=== PATIENT | female | born 1985 | race Caucasian/White ===

== ENCOUNTER 2016-04-06 18:13 | Emergency (ER) | payer SELFPAY ==
--- NOTE | 2016-04-06 18:38 | ERNOTE ---
Medical Problem HPI - Narrative Date of Service: 04/06/16 - General Chief Complaint: General Assessment Time Seen by Provider: 04/06/16 18:26 Source: patient Exam Limitations: no limitations - Immun/Allergies/Home Medications Immunizations: IMMUNIZATION HX Immunizations Up to Date Yes History of Influenza Vaccine No Hx Pneumococcal Vaccination No Allergies/Adverse Reactions: Allergies Sulfa (Sulfonamide Antibiotics) Allergy (Verified 04/06/16 18:25) Home Medications: HOME MEDICATIONS Cephalexin Monohydrate [Keflex] 500 mg PO QID #40 cap 04/06/16 [Last Taken Unknown] - History of Present History Narrative: Pt. comes in with c/o LLE numbness and loss of feeling in her bladder as well as B hand weakness. Pt. states that she thought she was dehydrated so she tried to drink water but was unable to hold the cup. Pt. states that these symptoms began yesterday and have become more intermittent today. Pt. states taht she has had problem word-finding this afternoon. Review of Systems - Review of Systems Constitutional: Present: no symptoms reported. Absent: recent illness, fever, chills, fatigue, malaise EYE: Present: no symptoms reported ENT: Present: no symptoms reported. Absent: ear pain, nose pain, nose congestion, nasal drainage, sore throat Respiratory: Present: no symptoms reported. Absent: shortness of breath, cough , wheezing Cardiology: Present: no symptoms reported. Absent: chest pain, palpitations, edema Gastrointestinal/Abdominal: Present: no symptoms reported. Absent: nausea, vomiting, diarrhea Genitourinary: Present: no symptoms reported Musculoskeletal: Present: no symptoms reported. Absent: back pain, joint pain Skin: Present: no symptoms reported. Absent: change in color, change in hair/ nails Neurological: Present: weakness - B hand, numbness - LLE, other - difficulty word finding. Absent: dizziness/light-headedness All Other Systems: All systems neg except as marked - Patient's Past Medical History Patient History - Medical: Anxiety Patient History - Cardiac/Respiratory: No pertinent hx Patient History - Cancer: No Hx of Cancer Patient History - Surgical Procedures: No surgical history LMP (females 10-50): 2 weeks - Family History Father Family History - Cardiac/Respiratory: Atrial Fibrillation, CHF, Hypertension, Valvular Heart Disease Mom Family History - Cardiac/Respiratory: No pertinent hx - Social History Living Situations: home Does anyone smoke in the home?: Yes Smoking Status: Current every day smoker Alcohol Use: occasionally Drug Use: none Physical Exam - Physical Exam General Appearance: Present: wd/wn, alert, no apparent distress Eye Exam: Normal inspection: bilateral, PERRL: bilateral, EOMI: bilateral Ears, Nose, Throat: Present: normal ENT inspection, hearing grossly normal, normal pharynx Neck: Present: normal inspection, nontender. Absent: lymphadenopathy (R), lymphadenopathy (L) Respiratory: Present: no respiratory distress, normal breath sounds, no accessory muscle use, chest nontender, lungs clear Cardiovascular/Chest: Present: regular rate, rhythm, no murmur, normal peripheral pulses Gastrointestinal/Abdominal: Present: normal bowel sounds, nontender, nondistended, soft, no organomegaly Back Exam: Present: normal inspection, normal range of motion, no CVA tenderness , no vertebral tenderness Extremity Exam: Present: normal inspection, non-tender, no edema, normal range of motion Neurological Exam: Present: alert, oriented, motor weakness - B hand, other - LLE sensory numbness ant foot interior calf and thigh, entire knee and urethra Skin Exam: Present: normal color, warm/dry. Absent: pallor, skin rash ED Progress - Date and Time Seen: Date and Time: 04/06/16 20:[address] and labs feel that this is due to the meth laced marijuana that pt. smoked on . Educated pt. on the problems of buying marijuana that is not pure and the neuro symptoms that can come from buying street drugs. Pt. will follow up with PCP if symptoms worsen or are not resolved in 2-3 days - Results and Orders Patient's Lab Results:: I have reviewed the patient's lab results. Results and Orders: potassium decreased but not to dangerous levels that could be causing pt. problems - Vital Signs Patient's Vital Signs:: I have reviewed the patient's vital signs. Vital Signs: Vital Signs 04/06/16 18:18 Temperature 36.9 C Pulse Rate 93 Respiratory 18 Rate Blood Pressure 148/96 O2 Sat by Pulse 94 Oximetry - CT/Ultrasound CT/Ultrasound Narrative: CT head negative - Progress/Reassessment Chief Complaint: General Assessment Departure - Departure Clinical Impression: Drug reaction UTI (urinary tract infection) Qualifiers: Urinary tract infection type: acute cystitis Hematuria presence: without hematuria Qualified Code(s): N30.00 - Acute cystitis without hematuria Disposition: Home self-care Condition: Good Instructions: Dystonic Reaction Additional Instructions: Please follow up with your primary provider in 2-3 days if not improved. Prescriptions: Cephalexin Monohydrate [Keflex] 500 mg PO QID #40 cap
[2016-04-06 18:53] LABS: Hematocrit 42.6 % (37.0-47.0); Hemoglobin 14.7 gm/dL (12.5-16.0); Mean Cell Volume 86.6 fl (78-100); Mean Corpuscular Hemoglobin 29.9 pg (27-31); Mean Corpuscular Hgb Conc 34.5 g/dl (32-36); Mean Platelet Volume 10.1 fl (6.0-9.5); Neutrophil # 5.5 K/mm3 (1.3-6.0); Neutrophil % 55.6 % (42-75.0); Platelet Count 267 K/mm3 (150-450); Red Blood Count 4.92 M/mm3 (4.2-5.4); Red Cell Distribution Width 11.8 % (11.5-14.0); White Blood Count 9.9 K/mm3 (4.0-10.5)
[2016-04-06 18:58] LABS: Albumin * 3.7 gm/dl (3.4-5.0); Anion Gap 14.7 mmol/L (6.8-13.8); BUN/Creatinine Ratio 18.4 (9.0-21.6); Bilirubin, Total 0.4 mg/dL (0.0-1.1); Ca. Corrected For Albumin 8.6 mg/dL (8.4-10.2); Calcium * 8.7 mg/dL (7.9-10.9); Carbon Dioxide 26.5 mmol/L (24-32.6); Magnesium 1.9 mg/dL (1.2-2.8); Phosphorus 3.9 mg/dL (2.2-4.2); Potassium 3.2 mmol/L (3.4-4.6); Total Protein 6.9 gm/dL (6.2-8.2)
[2016-04-06 19:12] LABS: Urine Bilirubin Negative (NEGATIVE); Urine Blood Negative /ul (NEGATIVE); Urine Ketone Negative (NEGATIVE); Urine Protein Negative (NEGATIVE); Urine Specific Gravity 1.025 SP.GR. (1.005-1.010); Urine Urobilinogen Normal (NORMAL)
[2016-04-06 19:21] LABS: Urine Appearance Slightly Cloudy; Urine Color Yellow; Urine Nitrite Positive (NEGATIVE); Urine RBC None Seen /hpf (0-5); Urine WBC 0-5 /hpf (0-5)
[2016-04-06 19:22] LABS: Urine Bacteria 3+; Urine Mucus Many - 3+
[2016-04-06 19:28] LABS: Cocaine Ur Negative (NEGATIVE); Urine Barbiturate Negative (NEGATIVE); Urine Benzodiazepines Negative (NEGATIVE); Urine Opiates Negative (NEGATIVE); Urine PCP Negative (NEGATIVE)
[2016-04-06 19:29] LABS: Urine THC Positive (NEGATIVE)
[2016-04-06] MEDS ORDERED: CEPHALEXIN MONOHYDRATE 250 MG CAPSULE PO ONE (20:09)
[2016-04-06] MEDS ORDERED: CEPHALEXIN MONOHYDRATE 250 MG CAPSULE ONE (20:17)
[2016-04-06 20:25] VITALS: BP 115/53
== END 2016-04-06 20:24 | disposition home or self-care (01) ==
LOC: ER 18:13
DX: N30.00 Acute cystitis without hematuria (principal); T88.7XXA Unspecified adverse effect of drug or medicament, initial encounter; F17.210 Nicotine dependence, cigarettes, uncomplicated
CPT/HCPCS: 36415; 70450; 80053; 81001; 83735; 84100; 85025; 87086; 99284; G0479